=== PATIENT | female | born 1980 | race Caucasian/White ===

== ENCOUNTER 2022-04-04 19:05 | Emergency (ER) | payer MEDICARE, MEDICAID ==
[~2022-04-04] VITALS: Ht 160 cm; Wt 84.1 kg
[2022-04-04 19:34] VITALS: BP 102/62
[2022-04-04] MEDS ORDERED: CYCL-1 PO (20:45)
== END 2022-04-04 20:50 | disposition home or self-care (01) ==
LOC: ER 19:05
DX: R20.2 Paresthesia of skin (principal); F31.9 Bipolar disorder, unspecified
CPT/HCPCS: 99283

== ENCOUNTER 2022-08-26 06:22 | Emergency (ER) | payer MEDICARE, MEDICAID ==
[~2022-08-26] VITALS: Ht 160 cm; Wt 84.1 kg
[~2022-08-26 06:22] MED LIST: CYCL-1 PO
[2022-08-26 06:25] VITALS: BP 106/58
[2022-08-26] MEDS ORDERED: acetaminophen 325mg tablet PO ONE (06:40)
[2022-08-26] MEDS ORDERED: NIRM1TAB PO (07:12)
== END 2022-08-26 06:54 | disposition home or self-care (01) ==
LOC: ER 06:24
DX: U07.1 COVID-19 (principal); B34.9 Viral infection, unspecified; R53.81 Other malaise; F31.9 Bipolar disorder, unspecified
CPT/HCPCS: 87502; 87503; 87635; 99283; C9803